=== PATIENT | male | born 1950 | race Caucasian/White ===

== ENCOUNTER 2022-07-12 09:37 | Inpatient (IN) | payer MEDICARE, SELFPAY ==
[2022-07-12] VITALS (11 sets, daily range): BP systolic 76–136; BP diastolic 54–84; PULSE 76–143; RESP 16–19; TEMP 35.8–39.2; O2SAT 93–98; BMI 33.3; BMI 34.3
--- NOTE | 2022-07-12 09:58 | RAD_ITS ---
STUDY: X-RAY CHEST REASON FOR EXAM: Male, 72 years old. Chills and fever. TECHNIQUE: Single AP portable view of the chest. COMPARISON: None. FINDINGS: EKG electrodes are seen. The lungs are clear and expanded. There is no demonstrated pleural abnormality. Normal size heart. Normal mediastinum and concepcion. Normal visualized pulmonary arteries. There is atherosclerotic tortuosity of the aortic arch and descending thoracic aorta. There are diffuse degenerative changes of the visualized thoracic spine. Normal visualized ribs, clavicles, and shoulders. There is no demonstrated abnormality of the visualized soft tissue structures of the upper abdomen. RAD/Chest 1 View (Portable) IMPRESSION: Normal x-ray examination of the chest. Electronically Signed: Dominic Augustin MD at 10:49 EST ,
--- NOTE | 2022-07-12 09:58 | EKG12_ITS ---
Test Reason : Blood Pressure : / mmHG Vent. Rate : 132 BPM Atrial Rate : 000 BPM P-R Int : 000 ms QRS Dur : 086 ms QT Int : 286 ms P-R-T Axes : 000 -04 -06 degrees QTc Int : 423 ms Atrial fibrillation with rapid ventricular response Inferior infarct , age undetermined Abnormal ECG Confirmed by REKHA PACHECO, CHAD ([id number]), newspaper editor managing UNIQUE ANDERSON ([id number]) on 07/15/2022 11:10:22 AM Referred By: JAVIER Confirmed By:CHAD DA SILVA MD
--- NOTE | 2022-07-12 10:00 | EDS_ITS ---
HPI History of Present Illness Chief Complaint: Complaint Informant: patient and spouse/S.O. Onset/Context/Timing Onset: Days Narrative Narrative: Patient presents secondary to dysuria and fever. He reports having dysuria and frequency over the past couple days. He denies history of UTIs. This morning he was running a fever at home with rigors. states temperature in the ear was measuring 106.7. She did give him ibuprofen around 630 this morning. Patient denies abdominal pain. PFSH PFS Medical History Afib High cholesterol HTN (hypertension) Home Medications apixaban 5 mg tablet (Eliquis) 5 mg PO BID 07/12/22 [History Last Taken Unknown] atorvastatin 40 mg tablet 40 mg PO DAILY 07/12/22 [History Last Taken Unknown] lisinopril 10 mg-hydrochlorothiazide 12.5 mg tablet 1 tab PO DAILY 07/12/22 [History Last Taken Unknown] metoprolol succinate 25 mg capsule sprinkle, ext. release 24 hr 25 mg PO DAILY 07/12/22 [History Last Taken Unknown] multivitamin 1 tab PO DAILY 07/12/22 [History Last Taken Unknown] Allergy/AdvReac Type Severity Reaction Status Date / Time No Known Allergies Allergy Verified 07/12/22 09:37 Social History Smoking Status: Never smoker ROS [facility] ED Constitutional Constitutional ED: Reports fever(s); Denies chills Eyes Eyes: Denies change in vision or discharge from eye(s) ENT ENT ED: Denies discharge from eye(s), rhinorrhea or sore throat Cardiovascular Cardiovascular: Denies chest pain or palpitations Respiratory/Chest Respiratory/Chest: Denies cough or dyspnea Gastrointestinal Gastrointestinal: Denies abdominal pain, diarrhea, nausea or vomiting Genitourinary Genitourinary ED: Reports dysuria and urinary frequency Musculoskeletal Musculoskeletal: Denies back pain or extremity pain Integumentary Denies Abrasions or rash Neurologic Neurologic: Denies headache(s) or weakness Psychiatric Psychiatric: Denies anxiety or depression Allergic/Immunologic Allergic/Immunologic ED: Denies lip swelling or urticaria EXAM Physical Exam Const Vital Signs: 07/12/22 09:38 07/12/22 09:51 07/12/22 09:56 Temperature 96.4 F L 97.7 F L Temperature Source Oral Oral Pulse Rate 143 H 129 H Respiratory Rate 17 Blood Pressure 76/56 L 122/84 H Blood Pressure Mean 62 96 Pulse Ox 96 Oxygen Delivery Method Room Air 07/12/22 10:12 07/12/22 10:13 07/12/22 11:09 Temperature 97.7 F L 97.9 F Temperature Source Oral Oral Pulse Rate 135 H 115 H Respiratory Rate 18 18 Blood Pressure 122/84 H 88/64 L Blood Pressure Mean 96 72 Pulse Ox 98 98 Oxygen Delivery Method Room Air Room Air Room Air Positive well nourished and well developed General Appearance ED: well developed HEENT Reports normocephalic and head/scalp atraumatic Eyes PERRL and EOMs intact bilaterally Neck supple Chest Wall inspection of chest normal and palpation of chest normal Resp normal respiratory effort and clear to auscultation bilaterally Cardio Rate: tachycardic Rhythm: abnormal rhythm irregularly irregular GI non-tender Auscultation: hypoactive bowel sounds Palpation: soft Extremity normal to inspection Neuro oriented x3 and no sensory deficits noted Sensorium / Orientation: alert Motor Exam: strength 5/5 throughout Psych mental status grossly normal Skin no rashes or lesions noted MDM MDM MDM Narrative Medical decision making narrative: Sepsis work-up initiated. Patient's blood pressure was low in triage at 76/56, but systolic pressure in the 120s at time at time of my exam. IV fluids given. Lab Data Attestation: I reviewed the patient's lab results. Labs: Laboratory Results - last 24 hr 07/12/22 07/12/22 07/12/22 10:06 10:06 10:06 WBC 11.7 H RBC 5.20 Hgb 15.8 Hct 47.7 MCV 91.7 MCH 30.4 MCHC 33.1 RDW Std Deviation 44.1 H RDW Coeff of Mark 13.1 Plt Count 192 MPV 11.0 Immature Gran % (Auto) 0.500 Neut % (Auto) 95.0 H Lymph % (Auto) 3.3 L [place] % (Auto) 1.0 Eos % (Auto) 0.0 Baso % (Auto) 0.2 Absolute Neuts (auto) 11.1 H Absolute Lymphs (auto) 0.39 L Nucleated RBC % 0 Differential Comment COMMENT PT 19.4 H INR 1.7 APTT 31.2 Sodium 143 Potassium 3.4 L Chloride 105 Carbon Dioxide 27.0 Anion Gap 11 BUN 30 H Creatinine 2.00 H Estim Creat Clear Calc 36.11 Est GFR (MDRD) Af Amer 42 L Est GFR (MDRD) Non-Af 35 L BUN/Creatinine Ratio 15.0 Glucose 125 H Lactic Acid Calcium 8.9 Total Bilirubin 2.70 H AST 25 ALT 28 Alkaline Phosphatase 54 Total Protein 6.8 Albumin 3.5 Globulin 3.3 Albumin/Globulin Ratio 1.1 Urine Color Urine Clarity Urine pH Ur Specific [place] Urine Protein Urine Glucose (UA) Urine Ketones Urine Occult Blood Urine Nitrite Urine Bilirubin Urine Urobilinogen Ur Leukocyte Esterase Urine RBC Urine WBC Ur Squamous Epith Cells Urine Bacteria Urine Mucus 07/12/22 07/12/22 10:06 10:39 WBC RBC Hgb Hct MCV MCH MCHC RDW Std Deviation RDW Coeff of Mark Plt Count MPV Immature Gran % (Auto) Neut % (Auto) Lymph % (Auto) [place] % (Auto) Eos % (Auto) Baso % (Auto) Absolute Neuts (auto) Absolute Lymphs (auto) Nucleated RBC % Differential Comment PT INR APTT Sodium Potassium Chloride Carbon Dioxide Anion Gap BUN Creatinine Estim Creat Clear Calc Est GFR (MDRD) Af Amer Est GFR (MDRD) Non-Af BUN/Creatinine Ratio Glucose Lactic Acid 2.7 H* Calcium Total Bilirubin AST ALT Alkaline Phosphatase Total Protein Albumin Globulin Albumin/Globulin Ratio Urine Color Yellow Urine Clarity Sl. Cloudy Urine pH 6.0 Ur Specific [place] 1.020 Urine Protein 100 H Urine Glucose (UA) Normal Urine Ketones 50 H Urine Occult Blood 250 H Urine Nitrite Negative Urine Bilirubin Negative Urine Urobilinogen Normal Ur Leukocyte Esterase 500 H Urine RBC 0 SEEN Urine WBC 25-50 SEEN Ur Squamous Epith Cells 0 SEEN Urine Bacteria 3+ Urine Mucus 0 SEEN Radiography Chest X-Ray - ED: 1 View, Read by ED Physician, Normal, Heart, Lungs and Mediastinum Diagnostic Testing: Clinical Impression(s) from Imaging Studies Chest X-Ray 07/12/22 09:58 IMPRESSION: Normal x-ray examination of the chest. Electronically Signed: Dominic Augustin MD at 10:49 EST , EKG Initial EKG: Attestation: I personally reviewed and interpreted this EKG as follows: Interpretation: Atrial Fibrillation (A-fib RVR at 132. No acute ischemia.) Treatment and Re-Evaluation Narrative: With IV fluids patient's heart rate is improved to around 110. I believe his rate is secondary to his infection. He did take his metoprolol this morning. CBC reveals a white count of 11.7 with 95% neutrophils. Chemistry studies significant for slightly low potassium at 3.4. BUN is 30 and creatinine is 2.0. I was able to find prior labs from March 2022 at which time his BUN was 20 and creatinine was 1.03. Lactic acid is elevated at 2.7. Urinalysis reveals infection with 25-50 white cells and 3+ bacteria. Blood and urine cultures have been sent. Chest x-ray per my interpretation shows no focal infiltrate. Radiology interpretation is reviewed and agrees. At this time patient has been given IV Rocephin. I was notified by nursing staff that the patient's blood pressure has dropped again to 88/64. He is currently receiving 30 cc/kg IV fluid bolus. I will speak with hospitalist regarding admission. Discharge Plan Triage Chief Complaint: Complaint ED Provider: Karon Ocasio Dx/Rx/DC Orders Clinical Impression: Sepsis, UTI (urinary tract infection), Acute kidney injury, Acidosis, lactic, Atrial fibrillation with rapid ventricular response Prescriptions: No Action multivitamin Tablet 1 tab PO DAILY atorvastatin 40 mg Tablet 40 mg PO DAILY lisinopril-hydrochlorothiazide 10-12.5 mg Tablet 1 tab PO DAILY Eliquis 5 mg Tablet 5 mg PO BID metoprolol succinate 25 mg Capsule,Sprinkle,Er 24hr 25 mg PO DAILY Primary Care Provider: Laith Arroyo Referrals: Laith Arroyo MD [Primary Care Provider] - Disposition Disposition: Acute Care [facility]
[2022-07-12 10:13] LABS: Absolute Lymphocyte Count 0.39 X10^3/uL (0.83-4.51); Absolute Neutrophil Count 11.1 X10^3/uL (2.0-7.7); Basophil# 0.02 X10^3/uL; Basophil% 0.2 % (0-1); Hematocrit 47.7 % (40-54); Hemoglobin 15.8 g/dL (13.0-16.5); Lymphocyte # 0.39 X10^3/ul (0.83-4.51); Lymphocyte % 3.3 % (19-41); Mean Corp Hgb Conc 33.1 g/dL (32-36); Mean Corpuscular Hgb 30.4 pg (27.0-32.0); Mean Corpuscular Volume 91.7 fL (80-94); Monocyte# 0.12 X10^3/uL; NRBC Flagged by Analyzer 0 % (0-5); Neutrophil # 11.11 X10^3/uL (2.7-7.7); POSITIVE DIFFERENTIAL YES; Platelet Count 192 K/mm3 (150-450); RBC Distribution Width CV 13.1 % (11.6-14.6); RBC Distribution Width SD 44.1 fl (35.1-43.9); White Blood Count 11.7 K/mm3 (4.4-11.0)
[2022-07-12 10:18] LABS: Differential Indicated SCAN CRITERIA MET
[2022-07-12 10:29] LABS: ALB/GLOB Ratio 1.1 RATIO (0.9-2.4); AST(SGOT) 25 U/L (15-37); Alanine Aminotransfer ALT/SGPT 28 U/L (16-61); Albumin, Serum 3.5 g/dL (3.2-5.0); Alkaline Phosphatase 54 U/L (45-117); Anion Gap 11 (5-15); BUN 30 mg/dL (7-18); Calcium,Total 8.9 mg/dL (8.5-10.1); Chloride 105 mmol/L (98-107); EST Glomerular Filtration Rate 35 mL/min (>60); Est Glom Filt Rate - Afr Amer 42 mL/min (>60); Estimated Creatinine Clearance 36.11 ml/min; Globulin 3.3 g/dL (2.2-4.2); Glucose 125 mg/dL (74-106); Potassium 3.4 mmol/L (3.5-5.1); Protein, Total 6.8 g/dL (6.4-8.2); Sodium Level 143 mmol/L (136-145)
[2022-07-12 10:33] LABS: International Normalized Ratio 1.7; Prothrombin Time (Protime)PT. 19.4 SECONDS (11.7-14.9)
[2022-07-12] MEDS: 0.9% Normal Saline 1,000 ML 150 ML IV ×3 (10:42→23:00)
[2022-07-12 10:44] LABS: Partial Thromboplast Time 31.2 Seconds (24.1-36.2)
[2022-07-12 10:46] LABS: Mucous, Urine 0 SEEN /hpf (<or=2+); Red Blood Cells-Urine 0 SEEN /hpf (0-5); Squamous Epithelial Cells - UA 0 SEEN /hpf (0-5)
[2022-07-12 10:50] LABS: Lactic Acid 2.7 mmol/L (0.4-1.9)
[2022-07-12 10:51] LABS: Color, Urine Yellow (Yellow); Glucose, Dipstick Normal (Normal); Ketone-Dipstick 50 mg/dl (Negative); Leukocyte Esterase-Dipstick 500 /ul (Negative); Nitrite-Dipstick Negative (Negative); Occult Blood-Urine 250 /ul (Negative); Protein-Dipstick 100 mg/dl (Negative); Urine Bilirubin Dipstick Negative (Negative); Urine Clarity Sl. Cloudy (Clear); Urine Urobilinogen Normal (Normal)
[2022-07-12 10:56] LABS: White Blood Cells 25-50 SEEN /hpf (0-5)
[2022-07-12 10:57] LABS: Bacteria 3+ /hpf (None Seen)
[2022-07-12] MEDS: 0.9% Normal Saline 1,000 ML 999 ML IV ×3 (11:21→13:25)
[2022-07-12] MEDS: Ceftriaxone 1 GM/50 ML BAG IV (11:21)
--- NOTE | 2022-07-12 12:40 | HP.PCM.HOS_ITS ---
HPI - General General Date of Admission: 07/12/22 Date of Service: 07/12/22 Chief Complaint: Fever, difficulty with urination HPI Narrative [place], is a 72-year-old male with a history of A-fib status post cardioversion last year on chronic anticoagulation, hypertension, CKD stage III unclear subtype who presented to [facility] 07/12/2022 with difficulty urinating and fever. He was in his usual health until 2 days ago w hen he began having difficulty urinating and had foul-smelling urine and overnight he developed a temperature which his reported was 106.4 in his ear and she gave him ibuprofen and brought him to the hospital. In the ED he was noted to have a white blood cell count of 11.7, creatinine of 2.0 with a previous value in March seen in an external EMR of 1.03, lactic acid 2.7 and total bili of 2.7 as well as UA suggestive of UTI. He initially was hypotensive at 76/56 with a heart rate of 143 in the waiting room, with fluid resuscitation heart rate and blood pressure improved and heart rate has been low 100s and blood pressure primarily 90s to 100 systolic with adequate MAP. Patient given Rocephin and sepsis protocol fluids and hospitalist consulted for admission. Patient evaluated with at bedside who concurred with above story that he was in his usual health until he developed difficulty urinating over the past 2 days and the fever last night. She felt like he might of been a little bit confused yesterday but is doing better at this time. He denied any other complaints, no burning on urination, no previous problems with emptying bladder, no abdominal pain. No chest pain or shortness of breath. [facility] Medical History Afib High cholesterol HTN (hypertension) Home Medications apixaban 5 mg tablet (Eliquis) 5 mg PO BID 07/12/22 [History Last Taken 07/12/22] atorvastatin 40 mg tablet 40 mg PO DAILY 07/12/22 [History Last Taken 07/12/22] ibuprofen 200 mg tablet 400 mg PO Q6H PRN Pain 07/12/22 [History Last Taken 07/12/22] lisinopril 10 mg-hydrochlorothiazide 12.5 mg tablet 1 tab PO DAILY 07/12/22 [History Last Taken 07/12/22] metoprolol succinate 25 mg capsule sprinkle, ext. release 24 hr 25 mg PO DAILY 07/12/22 [History Last Taken 07/11/22] multivitamin 1 tab PO DAILY 07/12/22 [History Last Taken 07/12/22] Allergy/AdvReac Type Severity Reaction Status Date / Time No Known Allergies Allergy Verified 07/12/22 09:37 Social History Smoking Status: Never smoker ROS ROS Narrative General: Fevers positive, denies weight change HENT: Denies headache, stuffy nose, sore throat EYES: Denies changes in vision Resp: Denies cough or shortness of breath Cardiac: Denies chest pain GI: Denies abdominal pain, changes in bowel, nausea, and vomiting : Has had difficulty with urination and changes in urine smell and color Extremity: Denies swelling MSK: Denies weakness Neuro: Denies any numbness or tingling Heme: Denies any bleeding or bruising Skin: Denies rashes Psychiatric: No complaints voiced Vital Signs Vital Signs Vital Signs: 07/12/22 09:38 07/12/22 09:51 07/12/22 09:56 Temperature 96.4 F L 97.7 F L Temperature Source Oral Oral Pulse Rate 143 H 129 H Respiratory Rate 17 Blood Pressure 76/56 L 122/84 H Blood Pressure Mean 62 96 Pulse Ox 96 Oxygen Delivery Method Room Air 07/12/22 10:12 07/12/22 10:13 07/12/22 11:09 Temperature 97.7 F L 97.9 F Temperature Source Oral Oral Pulse Rate 135 H 115 H Respiratory Rate 18 18 Blood Pressure 122/84 H 88/64 L Blood Pressure Mean 96 72 Pulse Ox 98 98 Oxygen Delivery Method Room Air Room Air Room Air 07/12/22 12:30 Temperature 98.1 F Temperature Source Temporal Pulse Rate 86 Respiratory Rate 19 H Blood Pressure 91/64 Blood Pressure Mean 73 Pulse Ox 94 Oxygen Delivery Method Room Air Weight Weight: 111.584 kg Body Mass Index (BMI) 33.3 Results Lab / Micro Data Result Diagrams: 07/12/22 10:06 07/12/22 10:06 Labs: Laboratory Results - last 24 hr 07/12/22 10:06: WBC 11.7 H, RBC 5.20, Hgb 15.8, Hct 47.7, MCV 91.7, MCH 30.4, MCHC 33.1, RDW Std Deviation 44.1 H, RDW Coeff of Mark 13.1, Plt Count 192, MPV 11.0, Immature Gran % (Auto) 0.500, Neut % (Auto) 95.0 H, Lymph % (Auto) 3.3 L, [place] % (Auto) 1.0, Eos % (Auto) 0.0, Baso % (Auto) 0.2, Absolute Neuts (auto) 11.1 H, Absolute Lymphs (auto) 0.39 L, Nucleated RBC % 0, Differential Comment COMMENT 07/12/22 10:06: PT 19.4 H, INR 1.7, APTT 31.2 07/12/22 10:06: Sodium 143, Potassium 3.4 L, Chloride 105, Carbon Dioxide 27.0, Anion Gap 11, BUN 30 H, Creatinine 2.00 H, Estim Creat Clear Calc 36.11, Est GFR (MDRD) Af Amer 42 L, Est GFR (MDRD) Non-Af 35 L, BUN/Creatinine Ratio 15.0, Glucose 125 H, Calcium 8.9, Total Bilirubin 2.70 H, AST 25, ALT 28, Alkaline Phosphatase 54, Total Protein 6.8, Albumin 3.5, Globulin 3.3, Albumin/Globulin Ratio 1.1 07/12/22 10:06: Lactic Acid 2.7 H* 07/12/22 10:39: Urine Color Yellow, Urine Clarity Sl. Cloudy, Urine pH 6.0, Ur Specific [place] 1.020, Urine Protein 100 H, Urine Glucose (UA) Normal, Urine Ketones 50 H, Urine Occult Blood 250 H, Urine Nitrite Negative, Urine Bilirubin Negative, Urine Urobilinogen Normal, Ur Leukocyte Esterase 500 H, Urine RBC 0 SEEN, Urine WBC 25-50 SEEN, Ur Squamous Epith Cells 0 SEEN, Urine Bacteria 3+, Urine Mucus 0 SEEN Radiology Impression Chest X-Ray 07/12/22 09:58 IMPRESSION: Normal x-ray examination of the chest. Electronically Signed: Dominic Augustin MD at 10:49 EST , Assessment & Plan Assessment/Plan (1) Sepsis: (2) UTI (urinary tract infection): (3) Acute kidney injury: (4) Acidosis, lactic: (5) Atrial fibrillation: PLAN: Plan #Sepsis secondary to urinary source Elevated white blood cell count with elevated lactic acid and UA suggestive of UTI qSofa is 1 due to SBP less than 100 on presentation Does not meet criteria for septic shock at this time as his map has been greater than or equal to 65 and is still undergoing his initial fluid resuscitation, repeat lactic pending Initially tachycardic and hypotensive which were responsive to fluids, blood pressure was evaluated in the ER with systolic low 100s to high 90s and adequate MAP Given Rocephin and sepsis protocol fluids Continue maintenance fluids, will broaden coverage to Zosyn given significance of presentation but do not feel we need MRSA coverage at this time Urine and blood cultures collected and pending Daily weights, I's and O's Will postvoid bladder scan x1 to verify he is not retaining #Atrial fibrillation Was tachycardic in the ED on admission and was deemed A-fib with RVR, query if it was a physiologic response to his sepsis but unclear On metoprolol at home, will hold this given his blood pressure but can consider amiodarone if needed Admit to telemetry Continue home Guerda Does report he had a cardioversion last year and from what he knew was in normal sinus rhythm since that time, does remain in A-fib on the monitor the heart rate is much better controlled #APRIL on CKD stage III unclear subtype External EMR showed a creatinine of 1.03 in March of last year, today creatinine is 2 Likely secondary to his sepsis We will give fluids #DVT ppx: Guerda Childs MD Time spent in the patient's overall evaluation,decision-making process, review of diagnostic data, adjustment of management, discussion with other providers, nursing nursing and ancillary staff involved in patient's care documentation, 60 Minutes Charges/Coding Visit Charges Inpatient E&M: 06901 Init Hosp L2
[2022-07-12 14:09] LABS: Reflex Lactate? Y
[2022-07-12 17:05] LABS: Reflex Lactate? Y
[2022-07-12 18:43] LABS: Lactic Acid 2.8 mmol/L (0.4-1.9)
--- NOTE | 2022-07-12 19:33 | CM.ED ---
LI received call from Yamileth at [facility] inquiring about patient's medical condition. LI referred Yamileth to the medical unit, PCU and provided her with the phone number for the unit. LI received voice mail from Kari. Kari said that patient could be accepted by [facility]. Patient is going to the [facility] unit and RN to RN is [phone]. LI updated Dragan dry pan charger. LI spoke to Yamileth at [facility] and social media assistant advised that the pink slip completed by the police says [facility] and could this aligner typewriter put [facility] on the pink slip and Yamileth said that was fine. LI was advised by community assistant that transport not available for patient till 10:30am on Friday. LI spoke to KATHY Hunter. Elsa advised not to tell the patient she is going to psych till tomorrow. Johanny TORREZ
[2022-07-12] MEDS: Acetaminophen 325 MG Tablet 650 MG PO (20:54)
[2022-07-12] MEDS: 0.9% Saline Lock 10 ML Syringe IV (20:55)
[2022-07-12] MEDS: APIXABAN 5 MG TABLET PO (21:00)
[2022-07-12 22:16] LABS: Lactic Acid 1.5 mmol/L (0.4-1.9)
[2022-07-13] VITALS (11 sets, daily range): BP systolic 109–146; BP diastolic 74–95; PULSE 64–154; RESP 16–20; TEMP 36.6–37.2; O2SAT 92–97
--- NOTE | 2022-07-13 01:44 | EKG12_ITS ---
Test Reason : A FIB Blood Pressure : / mmHG Vent. Rate : 125 BPM Atrial Rate : 000 BPM P-R Int : 000 ms QRS Dur : 086 ms QT Int : 310 ms P-R-T Axes : 000 006 063 degrees QTc Int : 447 ms Atrial fibrillation with rapid ventricular response Nonspecific T wave abnormality Abnormal ECG When compared with ECG of 13-JUL-2022 01:45, MANUAL COMPARISON REQUIRED, DATA IS UNCONFIRMED Confirmed by REKHA PACHECO, CHAD ([id number]), video tape editor NADIA UNDERWOOD ([id number]) on 07/16/2022 9:06:48 AM Referred By: Confirmed By:CHAD DA SILVA MD
[2022-07-13 05:47] LABS: Absolute Lymphocyte Count 0.63 X10^3/uL (0.83-4.51); Absolute Neutrophil Count 8.5 X10^3/uL (2.0-7.7); Basophil# 0.02 X10^3/uL; Basophil% 0.2 % (0-1); Eosinophil# 0.01 X10^3/uL; Eosinophils% 0.1 % (0-5); Hematocrit 38.7 % (40-54); Hemoglobin 12.8 g/dL (13.0-16.5); Lymphocyte # 0.63 X10^3/ul (0.83-4.51); Lymphocyte % 6.4 % (19-41); Mean Corp Hgb Conc 33.1 g/dL (32-36); Mean Corpuscular Hgb 31.1 pg (27.0-32.0); Mean Corpuscular Volume 93.9 fL (80-94); Mean Platelet Vol. 11.4 fl (6.2-12.0); Monocyte# 0.64 X10^3/uL; Monocyte% 6.5 % (0-10); NRBC Flagged by Analyzer 0 % (0-5); Neutrophil # 8.47 X10^3/uL (2.7-7.7); Neutrophil % 86.3 % (47-70); Platelet Count 122 K/mm3 (150-450); RBC Distribution Width CV 13.4 % (11.6-14.6); RBC Distribution Width SD 46.2 fl (35.1-43.9); Red Blood Count 4.12 M/mm3 (4.6-6.2); White Blood Count 9.8 K/mm3 (4.4-11.0)
[2022-07-13] MEDS: 0.9% Normal Saline 1,000 ML 150 ML IV (05:48)
[2022-07-13 06:25] LABS: ALB/GLOB Ratio 0.8 RATIO (0.9-2.4); AST(SGOT) 26 U/L (15-37); Alanine Aminotransfer ALT/SGPT 28 U/L (16-61); Albumin, Serum 2.5 g/dL (3.2-5.0); Alkaline Phosphatase 41 U/L (45-117); Anion Gap 7 (5-15); BUN 33 mg/dL (7-18); BUN/Creat Ratio 25.8 RATIO (10-20); Calcium,Total 7.3 mg/dL (8.5-10.1); Chloride 112 mmol/L (98-107); Creatinine, Serum 1.28 mg/dL (0.70-1.30); EST Glomerular Filtration Rate 59 mL/min (>60); Est Glom Filt Rate - Afr Amer 71 mL/min (>60); Estimated Creatinine Clearance 54.74 ml/min; Glucose 94 mg/dL (74-106); Potassium 3.6 mmol/L (3.5-5.1); Protein, Total 5.5 g/dL (6.4-8.2); Sodium Level 142 mmol/L (136-145); Thyroid Stim Hormone (TSH) 1.47 uIU/mL (0.358-3.74)
--- NOTE | 2022-07-13 07:50 | PN.HOSP_ITS ---
Subjective Subjective Is feeling better today, had episode of A-fib with RVR overnight Objective Data Objective Data Vital Signs: Vital Signs Temp Pulse Resp BP Pulse Ox O2 Del Method 99 F 72 18 129/85 H 96 Room Air 07/13/22 04:01 07/13/22 04:01 07/13/22 04:01 07/13/22 04:01 07/13/22 07:47 07/13/22 07:47 Oxygen Delivery Method Room Air Weight: 112.3 kg Body Mass Index (BMI) 34.3 Intake & Output: Intake and Output for Last 24 Hours 07/11/22 07/12/22 07/13/22 23:59 23:59 23:59 Intake Total 5659.1 / 5659.1 1153 / 1153 Output Total 400 / 400 Balance 5659.1 / 5659.1 753 / 753 Lab / Micro Data Result Diagrams: 07/13/22 05:05 07/13/22 05:05 Labs: Laboratory Results - last 24 hr 07/12/22 10:06: WBC 11.7 H, RBC 5.20, Hgb 15.8, Hct 47.7, MCV 91.7, MCH 30.4, MCHC 33.1, RDW Std Deviation 44.1 H, RDW Coeff of Mark 13.1, Plt Count 192, MPV 11.0, Immature Gran % (Auto) 0.500, Neut % (Auto) 95.0 H, Lymph % (Auto) 3.3 L, Anderson % (Auto) 1.0, Eos % (Auto) 0.0, Baso % (Auto) 0.2, Absolute Neuts (auto) 11.1 H, Absolute Lymphs (auto) 0.39 L, Nucleated RBC % 0, Differential Comment COMMENT 07/12/22 10:06: PT 19.4 H, INR 1.7, APTT 31.2 07/12/22 10:06: Sodium 143, Potassium 3.4 L, Chloride 105, Carbon Dioxide 27.0, Anion Gap 11, BUN 30 H, Creatinine 2.00 H, Estim Creat Clear Calc 36.11, Est GFR (MDRD) Af Amer 42 L, Est GFR (MDRD) Non-Af 35 L, BUN/Creatinine Ratio 15.0, Glucose 125 H, Calcium 8.9, Total Bilirubin 2.70 H, AST 25, ALT 28, Alkaline Phosphatase 54, Total Protein 6.8, Albumin 3.5, Globulin 3.3, Albumin/Globulin Ratio 1.1 07/12/22 10:06: Lactic Acid 2.7 H* 07/12/22 10:39: Urine Color Yellow, Urine Clarity Sl. Cloudy, Urine pH 6.0, Ur Specific [place] 1.020, Urine Protein 100 H, Urine Glucose (UA) Normal, Urine Ketones 50 H, Urine Occult Blood 250 H, Urine Nitrite Negative, Urine Bilirubin Negative, Urine Urobilinogen Normal, Ur Leukocyte Esterase 500 H, Urine RBC 0 SEEN, Urine WBC 25-50 SEEN, Ur Squamous Epith Cells 0 SEEN, Urine Bacteria 3+, Urine Mucus 0 SEEN 07/12/22 12:58: Lactic Acid 2.0 07/12/22 18:10: Lactic Acid 2.8 H* 07/12/22 21:27: Lactic Acid 1.5 07/13/22 05:05: WBC 9.8, RBC 4.12 L, Hgb 12.8 L, Hct 38.7 L, MCV 93.9, MCH 31.1, MCHC 33.1, RDW Std Deviation 46.2 H, RDW Coeff of Mark 13.4, Plt Count 122 L, MPV 11.4, Immature Gran % (Auto) 0.500, Neut % (Auto) 86.3 H, Lymph % (Auto) 6.4 L, Anderson % (Auto) 6.5, Eos % (Auto) 0.1, Baso % (Auto) 0.2, Absolute Neuts (auto) 8.5 H, Absolute Lymphs (auto) 0.63 L, Nucleated RBC % 0 07/13/22 05:05: Sodium 142, Potassium 3.6, Chloride 112 H, Carbon Dioxide 23.0, Anion Gap 7, BUN 33 H, Creatinine 1.28, Estim Creat Clear Calc 54.74, Est GFR (MDRD) Af Amer 71, Est GFR (MDRD) Non-Af 59 L, BUN/Creatinine Ratio 25.8 H, Glucose 94, Calcium 7.3 L, Total Bilirubin 1.40 H, AST 26, ALT 28, Alkaline Phosphatase 41 L, Total Protein 5.5 L, Albumin 2.5 L, Globulin 3.0, Album in/Globulin Ratio 0.8 L, TSH 1.47 Radiography Diagnostic Testing: Radiology Impression Chest X-Ray 07/12/22 09:58 IMPRESSION: Normal x-ray examination of the chest. Electronically Signed: Dominic Augustin MD at 10:49 EST , Physical Exam Narrative General: Alert, oriented, no apparent distress HEENT: Atraumatic, normocephalic Eyes: Anicteric, normal conjunctiva, extraocular movements grossly intact Neck: Supple Respiratory: Clear to auscultation bilaterally, normal respiratory effort Cardiovascular: Regular rate and rhythm GI: Soft, nontender, nondistended Extremities: No edema Musculoskeletal: Moving all extremities Neuro: No overt focal neurological deficits Skin: No rashes appreciated Psych: Cooperative Assessment & Plan Assessment/Plan (1) Sepsis: (2) UTI (urinary tract infection): (3) Acute kidney injury: (4) Acidosis, lactic: (5) Atrial fibrillation: PLAN: Plan #Sepsis secondary to E. coli UTI Elevated white blood cell count with elevated lactic acid and UA suggestive of UTI qSofa is 1 due to SBP less than 100 on presentation Does not meet criteria for septic shock at this time as his map has been greater than or equal to 65 and is still undergoing his initial fluid resuscitation, repeat lactic pending Initially tachycardic and hypotensive which were responsive to fluids, blood pressure was evaluated in the ER with systolic low 100s to high 90s and adequate MAP Given Rocephin and sepsis protocol fluids Continue maintenance fluids, will broaden coverage to Zosyn given significance of presentation but do not feel we need MRSA coverage at this time Urine and blood cultures collected and pending Daily weights, I's and O's Will postvoid bladder scan x1 to verify he is not retaining 2/4: BP and heart rate improving. WBC count normalized, creatinine improved, lactic acid normalized and bilirubin improving. Urine culture growing presump tive E. coli, on Zosyn, await sensitivities. Blood cultures pending. Possible discharge home tomorrow due to rapid improvement pending status and sensitivities #Atrial fibrillation Was tachycardic in the ED on admission and was deemed A-fib with RVR, query if it was a physiologic response to his sepsis but unclear On metoprolol at home, will hold this given his blood pressure but can consider amiodarone if needed Admit to telemetry Continue home [facility] Does report he had a cardioversion last year and from what he knew was in normal sinus rhythm since that time, does remain in A-fib on the monitor the heart rate is much better controlled 2/4: Went into RVR overnight which improved with an amiodarone bolus, given improvement in vital signs we will resume beta-ida #APRIL on CKD stage III unclear subtype External EMR showed a creatinine of 1.03 in March of last year, today creatinine is 2 Likely secondary to his sepsis We will give fluids 2/4: Improved with fluids and management of sepsis #DVT ppx: Guerda Childs MD Time spent in the patient's overall evaluation,decision-making process, review of diagnostic data, adjustment of management, discussion with other providers, nursing nursing and ancillary staff involved in patient's care documentation, 30 Minutes Charges/Coding Visit Charges Inpatient E&M: 67191 Subs Hosp L2
[2022-07-13] MEDS: Atorvastatin Calcium 40 MG Tablet PO (09:02)
[2022-07-13] MEDS: APIXABAN 5 MG TABLET PO ×2 (09:02→21:32)
[2022-07-13] MEDS: Metoprolol(XL)Succ 25 MG Tablet PO (09:02)
--- NOTE | 2022-07-13 13:00 | CASEMGMT ---
KATHY PAIGE DC Planning Assessment: Face to Face with patient for initial transition planning/care coordination assessment.?Pt sitting up in chair, easily awoken, alert, oriented x4. KATHY PAIGE introduced self and role at [facility], pt voices understanding and is agreeable to participating in assessment.? Care providers, pharmacy,?and demographics verified. ? Admitting dx: Sepsis, UTI PCP: Dr. Arroyo Specialists: [employer] [facility] at [facility] Preferred Pharmacy: [facility] Insurance: [facility] Prescription Benefit:?yes Living Will/HPOA: yes/yes-HPOA Stephanie LNOK: Stephanie Living Arrangements: Pt lives with his in a two story home with a flight of stairs to enter. States he is independent with all ADLs including self care and household tasks. Transportation: Pt drives and denies any concerns with transportation to appointments. DME/HHC/SNF: pt denies ? Plan: Pt plans to return home with the support of his . Denies any discharge needs or concerns at this time. Will Continue to monitor and assist with any DC needs as identified. Cole Hernandez RN CM
[2022-07-14] VITALS (7 sets, daily range): BP systolic 127–157; BP diastolic 72–91; PULSE 74–102; RESP 16–18; TEMP 36.8–37.2; O2SAT 93–96
[2022-07-14 06:16] LABS: Absolute Lymphocyte Count 0.64 X10^3/uL (0.83-4.51); Absolute Neutrophil Count 5.9 X10^3/uL (2.0-7.7); Basophil# 0.03 X10^3/uL; Basophil% 0.4 % (0-1); Eosinophil# 0.08 X10^3/uL; Eosinophils% 1.1 % (0-5); Hematocrit 39.1 % (40-54); Hemoglobin 12.6 g/dL (13.0-16.5); Lymphocyte # 0.64 X10^3/ul (0.83-4.51); Lymphocyte % 8.7 % (19-41); Mean Corp Hgb Conc 32.2 g/dL (32-36); Mean Corpuscular Hgb 30.4 pg (27.0-32.0); Mean Corpuscular Volume 94.2 fL (80-94); Mean Platelet Vol. 11.9 fl (6.2-12.0); Monocyte# 0.64 X10^3/uL; Monocyte% 8.7 % (0-10); NRBC Flagged by Analyzer 0 % (0-5); Neutrophil # 5.92 X10^3/uL (2.7-7.7); Neutrophil % 80.7 % (47-70); Platelet Count 128 K/mm3 (150-450); RBC Distribution Width CV 13.3 % (11.6-14.6); RBC Distribution Width SD 46.5 fl (35.1-43.9); Red Blood Count 4.15 M/mm3 (4.6-6.2); White Blood Count 7.3 K/mm3 (4.4-11.0)
[2022-07-14 07:04] LABS: ALB/GLOB Ratio 0.8 RATIO (0.9-2.4); AST(SGOT) 27 U/L (15-37); Alanine Aminotransfer ALT/SGPT 30 U/L (16-61); Albumin, Serum 2.5 g/dL (3.2-5.0); Alkaline Phosphatase 46 U/L (45-117); Anion Gap 7 (5-15); BUN 24 mg/dL (7-18); BUN/Creat Ratio 24.6 RATIO (10-20); Calcium,Total 7.8 mg/dL (8.5-10.1); Chloride 111 mmol/L (98-107); Creatinine, Serum 0.97 mg/dL (0.70-1.30); EST Glomerular Filtration Rate 80 mL/min (>60); Est Glom Filt Rate - Afr Amer 97 mL/min (>60); Estimated Creatinine Clearance 72.24 ml/min; Globulin 3.2 g/dL (2.2-4.2); Glucose 88 mg/dL (74-106); Potassium 3.4 mmol/L (3.5-5.1); Protein, Total 5.7 g/dL (6.4-8.2); Sodium Level 142 mmol/L (136-145)
--- NOTE | 2022-07-14 09:11 | EKG12_ITS ---
Test Reason : A-FIB Blood Pressure : / mmHG Vent. Rate : 148 BPM Atrial Rate : 000 BPM P-R Int : 000 ms QRS Dur : 086 ms QT Int : 294 ms P-R-T Axes : 000 003 065 degrees QTc Int : 461 ms Atrial fibrillation with rapid ventricular response Nonspecific T wave abnormality Abnormal ECG When compared with ECG of 12-JUL-2022 10:10, MANUAL COMPARISON REQUIRED, DATA IS UNCONFIRMED Confirmed by REKHA PACHECO, CHAD ([id number]), writer editor NADIA UNDERWOOD ([id number]) on 07/16/2022 9:08:15 AM Referred By: EMMANUEL Confirmed By:CHAD DA SILVA MD
[2022-07-14] MEDS: Metoprolol Tartrate 5 MG/5 ML Vial IV (09:42)
[2022-07-14] MEDS: 0.9% Saline Lock 10 ML Syringe IV (09:44)
[2022-07-14] MEDS: Potassium Chloride Oral Tablet 20 MEQ 40 MEQ PO ×2 (09:50→17:49)
[2022-07-14] MEDS: Metoprolol(XL)Succ 25 MG Tablet 50 MG PO (09:50)
[2022-07-14] MEDS: APIXABAN 5 MG TABLET PO ×2 (09:50→21:11)
[2022-07-14] MEDS: Atorvastatin Calcium 40 MG Tablet PO ×2 (09:51→21:11)
[2022-07-14] MEDS: hydroCHLOROthiazide 12.5mg 12.5 MG PO (10:08)
[2022-07-14] MEDS: Lisinopril 10 MG Tablet PO (10:08)
--- NOTE | 2022-07-14 14:34 | PCM.PN.HOSP ---
Subjective Subjective Patient this a.m. feeling better, urinating frequently, is having some diarrhea. On telemetry this a.m. heart rate was low 100s but spiked up to 170s. EKG obtained and metoprolol orders placed but could gone back down to low 100s but intermittently still 160s. Denies chest pain or shortness of breath when he is laying there and does not notice when he goes into this rhythm Objective Data Objective Data Vital Signs: Vital Signs Temp Pulse Resp BP Pulse Ox O2 Del Method 99.0 F 102 H 18 132/91 H 95 Room Air 07/14/22 09:30 07/14/22 09:50 07/14/22 09:30 07/14/22 09:50 07/14/22 09:30 07/14/22 09:58 Oxygen Delivery Method Room Air Weight: 111.1 kg Body Mass Index (BMI) 34.3 Intake & Output: Intake and Output for Last 24 Hours 07/12/22 07/13/22 07/14/22 23:59 23:59 23:59 Intake Total 5659.1 / 5659.1 2228 / 2228 600 / 600 Output Total 700 / 700 350 / 350 Balance 5659.1 / 5659.1 1528 / 1528 250 / 250 Lab / Micro Data Result Diagrams: 07/14/22 04:19 07/14/22 04:19 Labs: Laboratory Results - last 24 hr 07/14/22 04:19: WBC 7.3, RBC 4.15 L, Hgb 12.6 L, Hct 39.1 L, MCV 94.2 H, MCH 30.4, MCHC 32.2, RDW Std Deviation 46.5 H, RDW Coeff of Mark 13.3, Plt Count 128 L, MPV 11.9, Immature Gran % (Auto) 0.400, Neut % (Auto) 80.7 H, Lymph % (Auto) 8.7 L, Thayer % (Auto) 8.7, Eos % (Auto) 1.1, Baso % (Auto) 0.4, Absolute Neuts (auto) 5.9, Absolute Lymphs (auto) 0.64 L, Nucleated RBC % 0 07/14/22 04:19: Sodium 142, Potassium 3.4 L, Chloride 111 H, Carbon Dioxide 24.0, Anion Gap 7, BUN 24 H, Creatinine 0.97, Estim Creat Clear Calc 72.24, Est GFR (MDRD) Af Amer 97, Est GFR (MDRD) Non-Af 80, BUN/Creatinine Ratio 24.6 H, Glucose 88, Calcium 7.8 L, Total Bilirubin 1.20 H, AST 27, ALT 30, Alkaline Phosphatase 46, Total Protein 5.7 L, Albumin 2.5 L, Globulin 3.2, Albumin/Globulin Ratio 0.8 L Micro: Microbiology 07/12/22 10:10 Blood Culture (Wb) - Right Hand Blood Culture - Preliminary No growth in 48 hours. 07/12/22 10:06 Blood Culture (Wb) - Anticubital Left Blood Culture - Preliminary No growth in 48 hours. 07/12/22 10:39 Urine, Clean Catch Urine Culture - Final Presumptive E. coli Physical Exam Narrative General: Alert, oriented, no apparent distress HEENT: Atraumatic, normocephalic Eyes: Anicteric, normal conjunctiva, extraocular movements grossly intact Neck: Supple Respiratory: Clear to auscultation bilaterally, normal respiratory effort Cardiovascular: Irregularly irregular GI: Soft, nontender, nondistended Extremities: No edema Musculoskeletal: Moving all extremities Neuro: No overt focal neurological deficits Skin: No rashes appreciated Psych: Cooperative Assessment & Plan Assessment/Plan (1) Sepsis: (2) UTI (urinary tract infection): (3) Acute kidney injury: (4) Acidosis, lactic: (5) Atrial fibrillation: PLAN: Plan #Paroxysmal atrial fibrillation with RVR Was tachycardic in the ED on admission and was deemed A-fib with RVR, query if it was a physiologic response to his sepsis but unclear On metoprolol at home, will hold this given his blood pressure but can consider amiodarone if needed Admit to telemetry Continue home Guerda Does report he had a cardioversion last year and from what he knew was in normal sinus rhythm since that time, does remain in A-fib on the monitor the heart rate is much better controlled 2/: Went into RVR overnight which improved with an amiodarone bolus, given improvement in vital signs we will resume beta-ida 2: Heart rate had been much better controlled this a.m. was in the low 100s but was pending a.m. medications well looking at his rhythm heart rate jumped to 170s and was sustaining, IV x1 metoprolol and increased a.m. dose ordered and this was communicated with care team, EKG ordered. Evaluated patient and he had no complaints and did not notice when his heart changed rhythm or speed. Heart rate had gone back down to low 100s by the time EKG performed and that showed A-fib. Heart rate has remained high 90s to low 100s with intermittent episodes into the 160s though not sustaining as long. Potassium replaced. Will check TSH, magnesium. Did reveal later in the day that he has been having some diarrhea, will give fluids. Follows with cardiology in [place] and has had known paroxysmal A-fib for 3 years, suspect RVR is a combination of underlying infection with volume depletion. Continue work-up and management as well as increased dose of beta-ida, continue Eliquis. Will obtain echocardiogram #Acute diarrhea Suspect this is secondary to antibiotic but will order enteric panel and C. difficile We will give further fluids Monitor electrolytes and replace #Sepsis secondary to E. coli UTI Elevated white blood cell count with elevated lactic acid and UA suggestive of UTI qSofa is 1 due to SBP less than 100 on presentation Does not meet criteria for septic shock at this time as his map has been greater than or equal to 65 and is still undergoing his initial fluid resuscitation, repeat lactic pending Initially tachycardic and hypotensive which were responsive to fluids, blood pressure was evaluated in the ER with systolic low 100s to high 90s and adequate MAP Given Rocephin and sepsis protocol fluids Continue maintenance fluids, will broaden coverage to Zosyn given significance of presentation but do not feel we need MRSA coverage at this time Urine and blood cultures collected and pending Daily weights, I's and O's Will postvoid bladder scan x1 to verify he is not retaining 2/4: BP and heart rate improving. WBC count normalized, creatinine improved, lactic acid normalized and bilirubin improving. Urine culture growing presumptive E. coli, on Zosyn, await sensitivities. Blood cultures pending. Possible discharge home tomorrow due to rapid improvement pending status and sensitivities 2/5: De-escalated Zosyn to Rocephin based on sensitivities on urine culture, blood cultures no growth to date #APRIL on CKD stage III unclear subtype External EMR showed a creatinine of 1.03 in March of last year, today creatinine is 2 Likely secondary to his sepsis We will give fluids 2/4: Improved with fluids and management of sepsis #DVT ppx: Guerda Childs MD Time spent in the patient's overall evaluation,decision-making process, review of diagnostic data, adjustment of management, discussion with other providers, nursing nursing and ancillary staff involved in patient's care documentation, 30 Minutes Charges/Coding Visit Charges Inpatient E&M: 40850 Subs Hosp L2
--- NOTE | 2022-07-14 14:49 | ECHOCS_ITS ---
Reason For Study: Afib/Flutter Procedure This was a 2D Doppler, Color Flow transthoracic echocardiogram. The study was technically difficult. Contrast injection was performed. Exam performed portable in patient room. Left Ventricle Normal LV size. Mild concentric left ventricular hypertrophy. Left ventricular systolic function is normal. The estimated ejection fraction is 60 %. No regional wall motion abnormalities noted. Right Ventricle Normal RV size. Normal systolic function. Atria Normal left atrium. Normal right atrium. Mitral Valve Normal mitral valve. Tricuspid Valve Normal tricuspid valve. Aortic Valve Normal aortic valve. Trisinus/trileaflet aortic valve. Pulmonic Valve The pulmonic valve is not well visualized. Great Vessels Normal aortic root. The pulmonary artery is normal size. Normal inferior vena cava. Pericardium/Pleural No pericardial effusion. Medication Diluted definity 2ml given slow IV push to enhance endocardial definition. MMode/2D Measurements & Calculations LVIDd: 4.5 cm IVSd: 1.2 cm Ao root diam: 4.2 cm LVIDs: 3.6 cm LVPWd: 1.3 cm LA dimension: 4.3 cm FS: 21.5 % LAV(MOD-bp): 49.8 ml LA A4 area: 20.3 cm2 RA A4 area: 17.7 cm2 LAV(MOD-bp) Indexed: 21.7 ml/m2 LAV(MOD-sp2): 38.5 ml LAV(MOD-sp4): 60.3 ml Doppler Measurements & Calculations MV E max kristian: 97.7 cm/sec MV V2 max: 93.5 cm/sec Ao V2 max: 91.3 cm/sec MV max P.5 mmHg Ao max P.4 mmHg MV V2 mean: 56.0 cm/sec MV mean P.5 mmHg MV V2 VTI: 18.7 cm LV V1 max: 83.7 cm/sec PA V2 max: 86.9 cm/sec LV V1 max P.8 mmHg PA V2 mean: 56.7 cm/sec ECHO/Echo Complete W/ Contrast Interpretation Summary Normal LV size. Mild concentric left ventricular hypertrophy. Left ventricular systolic function is normal. The estimated ejection fraction is 60 %. Contrast injection was performed. Ordering Physician: Annalise Childs Performed By: Randell Rowe RCS
[2022-07-14 15:39] LABS: Anion Gap 8 (5-15); BUN 16 mg/dL (7-18); BUN/Creat Ratio 16.7 RATIO (10-20); Chloride 109 mmol/L (98-107); Creatinine, Serum 0.96 mg/dL (0.70-1.30); EST Glomerular Filtration Rate 82 mL/min (>60); Est Glom Filt Rate - Afr Amer 99 mL/min (>60); Estimated Creatinine Clearance 72.99 ml/min; Glucose 107 mg/dL (74-106); Magnesium 1.8 mg/dL (1.6-2.6); Potassium 3.5 mmol/L (3.5-5.1); Sodium Level 142 mmol/L (136-145)
[2022-07-14] MEDS: Magnesium Sulfate 4gm/100mL 4 GM/100 ML IV.SOLN. IV (17:44)
[2022-07-14] MEDS: Ceftriaxone 1 GM/50 ML BAG IV (22:12)
[2022-07-15 04:00] VITALS: BP 138/69; PULSE 97; RESP 18; TEMP 36.8; O2SAT 95
[2022-07-15 06:38] LABS: Absolute Lymphocyte Count 1.02 X10^3/uL (0.83-4.51); Absolute Neutrophil Count 4.4 X10^3/uL (2.0-7.7); Basophil# 0.02 X10^3/uL; Basophil% 0.3 % (0-1); Eosinophil# 0.09 X10^3/uL; Eosinophils% 1.5 % (0-5); Hematocrit 40.8 % (40-54); Hemoglobin 13.8 g/dL (13.0-16.5); Lymphocyte # 1.02 X10^3/ul (0.83-4.51); Lymphocyte % 16.5 % (19-41); Mean Corp Hgb Conc 33.8 g/dL (32-36); Mean Corpuscular Hgb 30.5 pg (27.0-32.0); Mean Corpuscular Volume 90.3 fL (80-94); Mean Platelet Vol. 11.4 fl (6.2-12.0); Monocyte# 0.61 X10^3/uL; Monocyte% 9.8 % (0-10); NRBC Flagged by Analyzer 0 % (0-5); Neutrophil # 4.43 X10^3/uL (2.7-7.7); Neutrophil % 71.4 % (47-70); Platelet Count 151 K/mm3 (150-450); RBC Distribution Width CV 13.2 % (11.6-14.6); RBC Distribution Width SD 44.3 fl (35.1-43.9); Red Blood Count 4.52 M/mm3 (4.6-6.2); White Blood Count 6.2 K/mm3 (4.4-11.0)
[2022-07-15 07:18] VITALS: O2SAT 93
[2022-07-15 07:18] LABS: ALB/GLOB Ratio 0.7 RATIO (0.9-2.4); AST(SGOT) 22 U/L (15-37); Alanine Aminotransfer ALT/SGPT 27 U/L (16-61); Albumin, Serum 2.5 g/dL (3.2-5.0); Alkaline Phosphatase 50 U/L (45-117); Anion Gap 8 (5-15); BUN 15 mg/dL (7-18); BUN/Creat Ratio 17.7 RATIO (10-20); Calcium,Total 7.9 mg/dL (8.5-10.1); Chloride 108 mmol/L (98-107); Creatinine, Serum 0.85 mg/dL (0.70-1.30); EST Glomerular Filtration Rate 94 mL/min (>60); Est Glom Filt Rate - Afr Amer 114 mL/min (>60); Estimated Creatinine Clearance 82.44 ml/min; Globulin 3.5 g/dL (2.2-4.2); Glucose 93 mg/dL (74-106); Magnesium 2.2 mg/dL (1.6-2.6); Potassium 3.7 mmol/L (3.5-5.1); Sodium Level 141 mmol/L (136-145)
[2022-07-15 10:00] VITALS: BP 127/90; PULSE 106; RESP 18; TEMP 37.2; O2SAT 96
[2022-07-15 10:02] VITALS: BP 129/90; PULSE 106
[2022-07-15] MEDS: Metoprolol(XL)Succ 25 MG Tablet 50 MG PO (10:02)
[2022-07-15] MEDS: Ceftriaxone 1 GM/50 ML BAG IV (10:02)
[2022-07-15] MEDS: Lisinopril 10 MG Tablet PO (10:03)
[2022-07-15] MEDS: hydroCHLOROthiazide 12.5mg 12.5 MG PO (10:03)
[2022-07-15] MEDS: APIXABAN 5 MG TABLET PO (10:03)
--- NOTE | 2022-07-15 13:00 | PCM.PN.HOSP ---
Subjective Subjective Patient is a 72-year-old gentleman admitted with dysuria fever and chills. And assessment of sepsis secondary to acute cystitis made admitted to the regular nursing floor for further management Objective Data Objective Data Vital Signs: Vital Signs Temp Pulse Resp BP Pulse Ox O2 Del Method 98.9 F 106 H 18 129/90 H 96 Room Air 07/15/22 10:00 07/15/22 10:02 07/15/22 10:00 07/15/22 10:02 07/15/22 10:00 07/15/22 10:00 Oxygen Delivery Method Room Air Weight: 110.6 kg Body Mass Index (BMI) 34.3 Intake & Output: Intake and Output for Last 24 Hours 07/13/22 07/14/22 07/15/22 23:59 23:59 23:59 Intake Total 2228 / 2228 2140 / 2140 50 / 50 Output Total 700 / 700 850 / 850 250 / 250 Balance 1528 / 1528 1290 / 1290 -200 / -200 Lab / Micro Data Result Diagrams: 07/15/22 05:06 07/15/22 05:06 Labs: Laboratory Results - last 24 hr 07/14/22 14:47: Sodium 142, Potassium 3.5, Chloride 109 H, Carbon Dioxide 25.0, Anion Gap 8, BUN 16, Creatinine 0.96, Estim Creat Clear Calc 72.99, Est GFR (MDRD) Af Amer 99, Est GFR (MDRD) Non-Af 82, BUN/Creatinine Ratio 16.7, Glucose 107 H, Calcium 8.0 L, Magnesium 1.8, TSH 2.10 07/15/22 05:06: WBC 6.2, RBC 4.52 L, Hgb 13.8, Hct 40.8, MCV 90.3, MCH 30.5, MCHC 33.8, RDW Std Deviation 44.3 H, RDW Coeff of Mark 13.2, Plt Count 151, MPV 11.4, Immature Gran % (Auto) 0.500, Neut % (Auto) 71.4 H, Lymph % (Auto) 16.5 L, [place] % (Auto) 9.8, Eos % (Auto) 1.5, Baso % (Auto) 0.3, Absolute Neuts (auto) 4.4, Absolute Lymphs (auto) 1.02, Nucleated RBC % 0 07/15/22 05:06: Sodium 141, Potassium 3.7, Chloride 108 H, Carbon Dioxide 25.0, Anion Gap 8, BUN 15, Creatinine 0.85, Estim Creat Clear Calc 82.44, Est GFR (MDRD) Af Amer 114, Est GFR (MDRD) Non-Af 94, BUN/Creatinine Ratio 17.7, Glucose 93, Calcium 7.9 L, Magnesium 2.2, Total Bilirubin 1.10 H, AST 22, ALT 27, Alkaline Phosphatase 50, Total Protein 6.0 L, Albumin 2.5 L, Globulin 3.5, Albumin/Globulin Ratio 0.7 L Micro: Microbiology 07/14/22 17:10 Stool Enteric Bacteriology - Final 07/12/22 10:10 Blood Culture (Wb) - Right Hand Blood Culture - Preliminary No growth in 48 hours. 07/12/22 10:06 Blood Culture (Wb) - Anticubital Left Blood Culture - Preliminary No growth in 48 hours. 07/12/22 10:39 Urine, Clean Catch Urine Culture - Final Presumptive E. coli Radiography Diagnostic Testing: Radiology Impression Echocardiogram 07/14/22 14:49 Interpretation Summary Normal LV size. Mild concentric left ventricular hypertrophy. Left ventricular systolic function is normal. The estimated ejection fraction is 60 %. Contrast injection was performed. Ordering Physician: Annalise Childs Performed By: Randell Rowe RCS Physical Exam Narrative GENERAL: cooperative HEENT: Atraumatic; normocephalic EYES; Anicteric, Normal Conjunctiva NECK; supple, normal thyroid, RESPIRATORY: Diminished to auscultation CARDIOVASCULAR: Regular S1 S2, GI: soft, normoactive bowel sounds, : No Renal angle tenderness; EXTREMITIES: No edema, no clubbing, MUSCULOSKELETAL: no muscle wasting NEURO: Awake; no lateralizing signs. SKIN: No Rash PSYCH; Flat affect Assessment & Plan Assessment/Plan (1) Sepsis: (2) UTI (urinary tract infection): (3) Acute kidney injury: (4) Acidosis, lactic: (5) Atrial fibrillation: PLAN: Plan Patient is a 72-year-old gentleman admitted with dysuria fever and chills. And assessment of sepsis secondary to acute cystitis made admitted to the regular nursing floor for further management 1. Sepsis secondary to UTI with E. coli ? Patient was managed per protocol with aggressive IV fluid resuscitation broad-spectrum antibiotic with Zosyn which was de-escalated following receipt of culture and sensitivity.Patient currently on ceftriaxone 2. Paroxysmal A-fib with RVR ? Possibly for stated by patient underlying infection. Per patient her heart rate control has been very difficult. Patient is on systemic anticoagulation with apixaban due to concern 3. Acute diarrhea ? Most likely antibiotic 4. Acute kidney injury ? Resolved with rehydration. Creatinine on admission was 2.0 creatinine as of this a.m. 0.85 5. Hypertension - Blood pressure controlled, home medications continued with dose adjustment as needed 6. DVT prophylaxis ? Patient is on Eliquis Time spent in the patient's overall evaluation,decision-making process, review of diagnostic data, adjustment of management, discussion with other providers, nursing nursing and ancillary staff involved in patient's care documentation, 37-minutes Charges/Coding Visit Charges Inpatient E&M: 76136 Subs Hosp L2
--- NOTE | 2022-07-15 14:38 | CHAPLAIN ---
Type of Pastoral Visit _x__ Initial Visit ___ Follow-up Visit ___ On-call Visit ___ General Patient Visit ___ Spiritual Assessment ___ Family Conference ___ Bereavement ___ Rapid Response ___ Code Blue ___ Other (describe below) Pastoral Care Referral From _x__ Patient ___ Family ___ Nurse ___ Physician ___ Big Data Lead ___ Formwork Carpenter ___ Other (describe below) Sacrament/Intervention _x__ Active listening ___ Anointing ___ Hindu ___ Bereavement ___ Communion ___ Veda exploration ___ ___ Life review ___ Prayer ___ Reconciliation ___ Sacrament of Sick _x__ Supportive presence ___ Wedding ___ Other (describe below) Pastoral Comments patient reports that this is his first ever hospital admission; pt has electronic items for 'to do' activities; pt spouse has been supportive but has taken a step out at this time; pt states he has no needs and that he is waiting on test results;
[2022-07-15] MEDS: Loperamide 2 MG Capsule 4 MG PO (16:38)
--- NOTE | 2022-07-15 16:47 | PCM.DC.SUM ---
Providers Date of Admission: 07/12/22 Date of Discharge: 07/15/22 Primary Care Physician: Dr. Laith Arroyo MD Reason For Visit: SEPSIS Diagnosis Discharge Diagnosis (1) Sepsis: Status: Acute Code(s): A41.9 - Sepsis, unspecified organism (2) UTI (urinary tract infection): Status: Acute Code(s): N39.0 - Urinary tract infection, site not specified (3) Acute kidney injury: Status: Acute Code(s): N17.9 - Acute kidney failure, unspecified (4) Acidosis, lactic: Status: Acute Code(s): E87.20 - Acidosis, unspecified (5) Atrial fibrillation: Status: Acute Code(s): I48.91 - Unspecified atrial fibrillation Plan Patient is a 72-year-old gentleman admitted with dysuria fever and chills. And assessment of sepsis secondary to acute cystitis made admitted to the regular nursing floor for further management 1. Sepsis secondary to UTI with E. coli ? Patient was managed per protocol with aggressive IV fluid resuscitation broad-spectrum antibiotic with Zosyn which was de-escalated following receipt of culture and sensitivity.Patient currently on ceftriaxone ? Discharge home on cefdinir 2. Paroxysmal A-fib with RVR ? Possibly for stated by patient underlying infection. Per patient her heart rate control has been very difficult. Patient is on systemic anticoagulation with apixaban due to concern 3. Acute diarrhea ? Most likely antibiotic 4. Acute kidney injury ? Resolved with rehydration. Creatinine on admission was 2.0 creatinine as of this a.m. 0.85 5. Hypertension - Blood pressure controlled, home medications continued with dose adjustment as needed 6. DVT prophylaxis ? Patient is on Eliquis Time spent in the patient's overall evaluation,decision-making process, review of diagnostic data, adjustment of management, discussion with other providers, nursing nursing and ancillary staff involved in patient's care documentation, 37-minutes Medications at Discharge Home Medications apixaban 5 mg tablet (Eliquis) 5 mg PO BID 07/12/22 atorvastatin 40 mg tablet 40 mg PO DAILY 07/12/22 ibuprofen 200 mg tablet 400 mg PO Q6H PRN Pain 07/12/22 lisinopril 10 mg-hydrochlorothiazide 12.5 mg tablet 1 tab PO DAILY 07/12/22 metoprolol succinate 25 mg capsule sprinkle, ext. release 24 hr 25 mg PO DAILY 07/12/22 multivitamin 1 tab PO DAILY 07/12/22 cefdinir 300 mg capsule 300 mg PO BID #20 caps 07/15/22 Hospital Course Summary of Care Provided Minutes Spent on Discharge: 37 Physical Exam Narrative GENERAL: cooperative HEENT: Atraumatic; normocephalic EYES; Anicteric, Normal Conjunctiva NECK; supple, normal thyroid, RESPIRATORY: Diminished to auscultation CARDIOVASCULAR: Regular S1 S2, GI: soft, normoactive bowel sounds, : No Renal angle tenderness; EXTREMITIES: No edema, no clubbing, MUSCULOSKELETAL: no muscle wasting NEURO: Awake; no lateralizing signs. SKIN: No Rash PSYCH; Flat affect Weight / BMI Weight Weight: 110.6 kg Body Mass Index (BMI) 34.3 ABG / Lab / Microbiology Data Result Diagrams: 07/15/22 05:06 07/15/22 05:06 Laboratory: Laboratory Results - last 24 hr 07/15/22 05:06: WBC 6.2, RBC 4.52 L, Hgb 13.8, Hct 40.8, MCV 90.3, MCH 30.5, MCHC 33.8, RDW Std Deviation 44.3 H, RDW Coeff of Mark 13.2, Plt Count 151, MPV 11.4, Immature Gran % (Auto) 0.500, Neut % (Auto) 71.4 H, Lymph % (Auto) 16.5 L, [place] % (Auto) 9.8, Eos % (Auto) 1.5, Baso % (Auto) 0.3, Absolute Neuts (auto) 4.4, Absolute Lymphs (auto) 1.02, Nucleated RBC % 0 07/15/22 05:06: Sodium 141, Potassium 3.7, Chloride 108 H, Carbon Dioxide 25.0, Anion Gap 8, BUN 15, Creatinine 0.85, Estim Creat Clear Calc 82.44, Est GFR (MDRD) Af Amer 114, Est GFR (MDRD) Non-Af 94, BUN/Creatinine Ratio 17.7, Glucose 93, Calcium 7.9 L, Magnesium 2.2, Total Bilirubin 1.10 H, AST 22, ALT 27, Alkaline Phosphatase 50, Total Protein 6.0 L, Albumin 2.5 L, Globulin 3.5, Albumin/Globulin Ratio 0.7 L Microbiology: Microbiology 07/14/22 17:10 Stool C. difficile DNA Amplification - Final 07/14/22 17:10 Stool Enteric Bacteriology - Final 07/12/22 10:10 Blood Culture (Wb) - Right Hand Blood Culture - Preliminary No growth in 48 hours. 07/12/22 10:06 Blood Culture (Wb) - Anticubital Left Blood Culture - Preliminary No growth in 48 hours. 07/12/22 10:39 Urine, Clean Catch Urine Culture - Final Presumptive E. coli Radiography Diagnostic Testing: Radiology Impression Echocardiogram 07/14/22 14:49 Interpretation Summary Normal LV size. Mild concentric left ventricular hypertrophy. Left ventricular systolic function is normal. The estimated ejection fraction is 60 %. Contrast injection was performed. Ordering Physician: Annalise Childs Performed By: Randell Rowe RCS D/C Instructions Discharge Diet: No restrictions Discharge Activity: Return to Normal Activity Call your doctor if you observe: Fever of 101 or Higher, Shortness of breath, Fainting spells and Chest pain Meaningful Use Info Meaningful Use Diagnoses (Choose all that apply): None applicable Discharge Plan Admission Admit Date/Time: 07/12/22 12:05 Attending Provider: Ananth Gallegos Primary Care Provider: Laith Arroyo Consulting Providers: Annalise Childs Discharge Orders/Prescriptions Prescriptions: New cefdinir 300 mg capsule 300 mg PO BID Qty: 20 0RF Continued multivitamin Tablet 1 tab PO DAILY atorvastatin 40 mg Tablet 40 mg PO DAILY lisinopril-hydrochlorothiazide 10-12.5 mg Tablet 1 tab PO DAILY Eliquis 5 mg Tablet 5 mg PO BID metoprolol succinate 25 mg Capsule,Sprinkle,Er 24hr 25 mg PO DAILY ibuprofen 200 mg Tablet 400 mg PO Q6H PRN (Reason: Pain) Referrals / Follow Up: Laith Arroyo MD [Primary Care Provider] - In 1 Week Disposition Disposition (needs filled in before D/C Order can be placed): Home, Self Care
[2022-07-15 16:49] VITALS: BP 128/91; PULSE 87; RESP 18; TEMP 37.1; O2SAT 97
== END 2022-07-15 18:02 | disposition home or self-care (01) | DRG 872 ==
LOC: ED 11:24 → PCU 12:06
PROVIDERS: Admitting Provider Internal Medicine; Emergency Provider Emergency Medicine; PCP Family Medicine; Visit Provider Internal Medicine
DX: A41.51 Sepsis due to Escherichia coli [E. coli] (principal); K52.1 Toxic gastroenteritis and colitis; N17.9 Acute kidney failure, unspecified; N30.00 Acute cystitis without hematuria; I48.0 Paroxysmal atrial fibrillation; N18.30 Chronic kidney disease, stage 3 unspecified; I95.9 Hypotension, unspecified; I12.9 Hypertensive chronic kidney disease with stage 1 through stage 4 chronic kidney disease, or unspecified chronic kidney disease; E78.00 Pure hypercholesterolemia, unspecified; Z79.01 Long term (current) use of anticoagulants; Z79.899 Other long term (current) drug therapy; T36.95XA Adverse effect of unspecified systemic antibiotic, initial encounter
CPT/HCPCS: 36415; 71045; 80048; 80053; 81001; 83605; 83735; 84443; 85025; 85610; 85730; 87040; 87086; 87088; 87186; 87493; 87506; 93005; 93306; 94668; 94762; 99252; 99284; J7030; J7040; Q9957; A4216; C8929; G0463